=== PATIENT | female | born 1945 | race Caucasian/White ===

== ENCOUNTER → 2017-07-13 | Outpatient (CLI) | payer MEDICARE, BC ==
[~2017-07-13] MED LIST: AMIT10TA PO; ASPI81TA50 PO; BLAC160C PO; CALC-31 PO; FERR-26 PO; GABA-585 PO; GLUC1CAP48 PO; LEVO25TA4 PO; MELO15TA23 PO; MULT1TAB52 PO; NATURAL ESTROGEN PO; OMEG1CAP38 PO; POLY17PO29 PO
[2017-07-13 11:00] LABS: BASO % 1 % (0-3); EOS % 2 % (0-3); HEMATOCRIT 43.6 % (36.0-47.0); HEMOGLOBIN 14.8 g/dL (12.0-15.5); LYMPH # 1.4 x10^3/uL (1.0-4.8); LYMPH % 29 % (24-48); MEAN CORPUSCULAR HEMOGLOBIN 32 pg (25-35); MEAN CORPUSCULAR HGB CONC 34 g/dL (31-37); MEAN CORPUSCULAR VOLUME 93 fL (79-100); MONO % 7 % (0-9); NEUT % 61 % (31-73); PLATELET COUNT 216 x10^3/uL (140-400); RED BLOOD COUNT 4.68 x10^6/uL (3.50-5.40); RED CELL DISTRIBUTION WIDTH 13.9 % (11.5-14.5); WHITE BLOOD COUNT 4.9 x10^3/uL (4.0-11.0)
[2017-07-13 12:14] LABS: INR 1.1 (0.8-1.1); PROTHROMBIN TIME PATIENT 13.5 SEC (11.7-14.0)
[2017-07-13 12:42] LABS: BILIRUBIN,URINE NEGATIVE (NEG); GLUCOSE,URINE NEGATIVE (NEG); NITRITE,URINE NEGATIVE (NEG); PROTEIN,URINE NEGATIVE (NEG-TRACE); UROBILINOGEN,URINE 0.2 mg/dL (0.2 mg/dL)
[2017-07-13 12:43] LABS: BACTERIA,URINE 0 /HPF (0-FEW); RBC,URINE 0 /HPF (0-2); WBC,URINE 0 /HPF (0-4)
--- NOTE | 2017-07-13 16:58 | RAD ---
PROCEDURE: CHEST PA LATERAL CLINICAL INDICATION: PRE-OP CHEST, KNEE REPLACEMENT COMPARISON: Previous study from 07/01/2004 FINDINGS: No pneumothorax identified. Cardiac and mediastinal contours unremarkable. No pulmonary consolidation or acute airspace disease. No acute osseous abnormalities identified. IMPRESSION: No pulmonary consolidation or acute airspace disease.
== END | disposition home or self-care (01) ==
LOC: SURGPAT 09:17
PROVIDERS: ATTEND Orthopaedic Surgery
DX: Z01.818 Encounter for other preprocedural examination (principal); M17.12 Unilateral primary osteoarthritis, left knee; Z96.652 Presence of left artificial knee joint; R07.9 Chest pain, unspecified
CPT/HCPCS: 36415; 71020; 81001; 82040; 82306; 85025; 85610; 85651; 85730; 87641

== ENCOUNTER → 2017-07-13 | Outpatient (CLI) | payer MEDICARE, BC ==
[2017-07-13 11:36] LABS: CALCIUM 9.1 mg/dL (8.5-10.1); CREATININE 0.8 mg/dL (0.6-1.0); GFR 70.7; POTASSIUM 4.1 mmol/L (3.5-5.1); TOTAL BILIRUBIN 0.5 mg/dL (0.2-1.0); TOTAL PROTEIN 7.9 g/dL (6.4-8.2)
[2017-07-13 11:37] LABS: ALBUMIN 4.2 g/dL (3.4-5.0); ALBUMIN/GLOBULIN RATIO 1.1 (1.0-1.7)
[2017-07-13 11:42] LABS: CHOLESTEROL/HDL RATIO 3.8
[2017-07-13 11:45] LABS: FREE T4 0.79 ng/dL (0.76-1.46)
== END | disposition home or self-care (01) ==
LOC: LAB 09:08
PROVIDERS: ATTEND Family Medicine
DX: Z00.01 Encounter for general adult medical examination with abnormal findings (principal); E03.9 Hypothyroidism, unspecified
CPT/HCPCS: 36415; 80053; 80061; 84439; 84443

== ENCOUNTER 2017-08-04 05:55 | Inpatient (IN) | payer MEDICARE, BC ==
[2017-08-04] MEDS ORDERED: MELOXICAM 7.5 MG TABLET PO (06:00)
[2017-08-04] MEDS ORDERED: ROCURONIUM 50 MG/5 ML VIAL. (06:37)
[2017-08-04] MEDS ORDERED: LIDOCAINE 2% PF Vial for OR 5 ML VIAL. (06:37)
[2017-08-04] MEDS: IV RINGERS,LACTATED 1000ML 1,000 ML IV (06:37)
[2017-08-04] MEDS ORDERED: ONDANSETRON PF 4 MG/2 ML VIAL. (06:37)
[2017-08-04] MEDS ORDERED: PROPOFOL 20 ML IV (06:37)
[2017-08-04] MEDS: HYDROcodone/APAP 7.5/325MG 1 TAB TABLET PO ×3 (06:38→21:31)
[2017-08-04] MEDS ORDERED: fentaNYL PF VIAL 100 MCG/2 ML VIAL IV ×2 (07:00→10:00)
[2017-08-04] MEDS ORDERED: ONDANSETRON PF 4 MG/2 ML VIAL. IV (07:00)
[2017-08-04] MEDS ORDERED: LIDOCAINE 1% PF 2 ML VIAL. ID (07:00)
[2017-08-04] MEDS ORDERED: MIDAZOLAM HCL/PF 2 MG/2 ML VIAL. (07:03)
[2017-08-04] MEDS ORDERED: fentaNYL PF VIAL 100 MCG/2 ML VIAL ×2 (07:03→07:52)
[2017-08-04] MEDS ORDERED: FAMOTIDINE 20 MG/2 ML VIAL (07:03)
[2017-08-04] MEDS ORDERED: DEXAMETHASONE SOD PHOS 20 MG/5 ML VIAL. (07:47)
[2017-08-04] MEDS: TRANEXAMIC ACID 1,000 MG in IV NS 50ML -- 1ST BAG INJ (07:59)
[2017-08-04] MEDS: TOBRAMYCIN POWDER 1.2 GM VIAL. (08:24)
[2017-08-04] MEDS: VANCOMYCIN 1 GM VIAL. (08:24)
[2017-08-04] MEDS: TRANEXAMIC ACID 1,000 MG in IV NS 50ML -- 2ND BAG INJ (09:02)
[2017-08-04] MEDS ORDERED: NEOSTIGMINE METHYLSULFATE 5 MG/5 ML SYRINGE. (09:08)
[2017-08-04] MEDS ORDERED: GLYCOPYRROLATE 1 MG/5 ML VIAL. (09:08)
[2017-08-04] MEDS ORDERED: SEVOFLURANE 61 TO 120 MINUTES. IH (09:17)
[2017-08-04] MEDS ORDERED: MORPHINE SULFATE 4 MG/ML DISP.SYRIN. IV ×2 (10:00)
[2017-08-04] MEDS ORDERED: diphenhydrAMINE 50 MG/ML VIAL IV (10:00)
[2017-08-04] MEDS ORDERED: PROCHLORPERAZINE 10 MG/2 ML VIAL. IV (10:00)
[2017-08-04] MEDS ORDERED: METOCLOPRAMIDE HCL 10 MG/2 ML VIAL. IV (10:00)
[2017-08-04] MEDS ORDERED: DEXTROSE 50% 25 GM / 50ML DISP.SYRIN. IV (10:00)
[2017-08-04] MEDS ORDERED: 0.9 % SODIUM CHLORIDE 10 ML DISP.SYRIN. IV (10:00)
[2017-08-04] MEDS ORDERED: CALCIUM CARBONATE 500 MG TAB.CHEW PO (10:00)
[2017-08-04] MEDS ORDERED: traMADol 50 MG TABLET PO ×2 (10:00)
[2017-08-04] MEDS ORDERED: MORPHINE SULFATE 10 MG/ML VIAL. IV (10:00)
[2017-08-04] MEDS ORDERED: PROCHLORPERAZINE 5 MG TABLET. PO (10:00)
[2017-08-04] MEDS ORDERED: MORPHINE SULFATE 2 MG/ML DISP.SYRIN. IV (10:00)
[2017-08-04] MEDS ORDERED: ACETAMINOPHEN 325 MG TABLET. PO (10:00)
[2017-08-04] MEDS ORDERED: ZOLPIDEM 5 MG TABLET. PO (10:00)
[2017-08-04] MEDS: fentaNYL PF VIAL 100 MCG/2 ML VIAL IV ×3 (10:07→14:55)
[2017-08-04] MEDS: PROCHLORPERAZINE 10 MG/2 ML VIAL. IV (10:07)
[2017-08-04] MEDS ORDERED: ceFAZolin SODIUM 1 GM in IV DEXTROSE 5% 50 ML IV (10:15)
[2017-08-04] MEDS: MORPHINE SULFATE 2 MG/ML DISP.SYRIN. IV ×2 (10:37→10:59)
[2017-08-04] MEDS: HYDROmorphone 2 MG/ML VIAL IV ×2 (10:39→10:49)
[2017-08-04] MEDS: GABAPENTIN 100 MG CAPSULE. PO ×3 (14:55→21:19)
[2017-08-04] MEDS: SENNOSIDES/DOCUSATE 8.6/50MG TABLET. PO (14:55)
[2017-08-04] MEDS: ceFAZolin SODIUM IV Push 1 GM VIAL. IVP ×2 (14:55→21:30)
[2017-08-04] MEDS: IV DEXTROSE 5 %-0.45 % NACL 1,000 ML IV ×2 (15:05→19:55)
[2017-08-04] MEDS: POLYETHYLENE GLYCOL 3350 17 GM PACKET. PO (16:30)
[2017-08-04] MEDS: KETOROLAC 30 MG, BUPIVACAINE MPF 0.25% 20 ML, EPINEPHrine 0.5 MG in TOTAL VOLUME SYRING... INT ART (17:30)
[2017-08-04] MEDS: CALCIUM CARB/VIT D3 500/200 TABLET. PO (17:31)
[2017-08-04] MEDS: FERROUS SULFATE 325 MG TABLET. PO (17:31)
[2017-08-04] MEDS: HYDROcodone/APAP 10/325 1 TAB TABLET PO (21:19)
[2017-08-04] MEDS: AMITRIPTYLINE HCL 10 MG TABLET. PO (21:19)
[2017-08-04] MEDS: CELECOXIB 200 MG CAPSULE. PO (21:19)
[2017-08-04] MEDS: ASPIRIN ENTERIC COATED 325 MG TABLET.DR. PO (21:19)
[2017-08-05] MEDS: HYDROcodone/APAP 10/325 1 TAB TABLET PO ×4 (04:56→18:21)
[2017-08-05] MEDS: ceFAZolin SODIUM IV Push 1 GM VIAL. IVP (04:58)
[2017-08-05] MEDS: KETOROLAC 30 MG, BUPIVACAINE MPF 0.25% 20 ML, EPINEPHrine 0.5 MG in TOTAL VOLUME SYRING... INT ART (05:20)
[2017-08-05] MEDS ORDERED: MAGNESIUM HYDROXIDE 2,400 MG/30 ML ORAL.SUSP. PO (06:00)
[2017-08-05] MEDS: LEVOTHYROXINE 25 MCG TABLET. PO (06:19)
[2017-08-05] MEDS: GABAPENTIN 100 MG CAPSULE. PO ×4 (08:13→21:00)
[2017-08-05] MEDS: ASPIRIN ENTERIC COATED 325 MG TABLET.DR. PO ×2 (08:13→21:40)
[2017-08-05] MEDS: POLYETHYLENE GLYCOL 3350 17 GM PACKET. PO (08:13)
[2017-08-05] MEDS: CELECOXIB 200 MG CAPSULE. PO ×2 (08:13→21:40)
[2017-08-05] MEDS: CALCIUM CARB/VIT D3 500/200 TABLET. PO ×2 (08:13→17:54)
[2017-08-05] MEDS: MULTIVITAMIN with MINERAL TABLET. PO (08:13)
[2017-08-05] MEDS: FERROUS SULFATE 325 MG TABLET. PO ×2 (08:13→17:54)
[2017-08-05] MEDS: oxyCODONE/APAP 7.5/325 1 TAB TABLET PO (14:49)
[2017-08-05] MEDS ORDERED: BISACODYL 10 MG SUPP.RECT. PR (16:00)
[2017-08-05] MEDS: HYDROcodone/APAP 7.5/325MG 1 TAB TABLET PO (21:41)
[2017-08-05] MEDS: AMITRIPTYLINE HCL 10 MG TABLET. PO (21:41)
[2017-08-06] MEDS: HYDROcodone/APAP 7.5/325MG 1 TAB TABLET PO ×3 (01:25→08:26)
[2017-08-06 04:44] LABS: HEMATOCRIT 32.3 % (36.0-47.0); HEMOGLOBIN 10.9 g/dL (12.0-15.5); MEAN CORPUSCULAR HGB CONC 34 g/dL (31-37)
[2017-08-06] MEDS: LEVOTHYROXINE 25 MCG TABLET. PO (06:42)
[2017-08-06] MEDS: CALCIUM CARB/VIT D3 500/200 TABLET. PO ×2 (08:26→17:45)
[2017-08-06] MEDS: GABAPENTIN 100 MG CAPSULE. PO ×4 (08:26→22:06)
[2017-08-06] MEDS: FERROUS SULFATE 325 MG TABLET. PO ×2 (08:26→17:45)
[2017-08-06] MEDS: CELECOXIB 200 MG CAPSULE. PO ×2 (08:26→22:06)
[2017-08-06] MEDS: MULTIVITAMIN with MINERAL TABLET. PO (08:26)
[2017-08-06] MEDS: ASPIRIN ENTERIC COATED 325 MG TABLET.DR. PO ×2 (08:26→22:06)
[2017-08-06] MEDS: POLYETHYLENE GLYCOL 3350 17 GM PACKET. PO (09:00)
[2017-08-06] MEDS: HYDROcodone/APAP 10/325 1 TAB TABLET PO ×2 (12:18→22:06)
[2017-08-06] MEDS: oxyCODONE/APAP 5/325 1 TAB TABLET PO (14:34)
[2017-08-06] MEDS: oxyCODONE/APAP 7.5/325 1 TAB TABLET PO (17:45)
[2017-08-06] MEDS: AMITRIPTYLINE HCL 10 MG TABLET. PO (22:06)
[2017-08-07] MEDS: HYDROcodone/APAP 10/325 1 TAB TABLET PO (02:22)
[2017-08-07] MEDS: LEVOTHYROXINE 25 MCG TABLET. PO (04:44)
[2017-08-07 05:51] LABS: HEMATOCRIT 33.2 % (36.0-47.0); HEMOGLOBIN 11.1 g/dL (12.0-15.5); MEAN CORPUSCULAR HGB CONC 33 g/dL (31-37)
[2017-08-07] MEDS: ASPIRIN ENTERIC COATED 325 MG TABLET.DR. PO (08:04)
[2017-08-07] MEDS: CELECOXIB 200 MG CAPSULE. PO (08:04)
[2017-08-07] MEDS: GABAPENTIN 100 MG CAPSULE. PO ×2 (08:04→12:38)
[2017-08-07] MEDS: FERROUS SULFATE 325 MG TABLET. PO (08:04)
[2017-08-07] MEDS: MULTIVITAMIN with MINERAL TABLET. PO (08:04)
[2017-08-07] MEDS: CALCIUM CARB/VIT D3 500/200 TABLET. PO (08:04)
[2017-08-07] MEDS: POLYETHYLENE GLYCOL 3350 17 GM PACKET. PO (08:06)
[2017-08-07] MEDS: oxyCODONE/APAP 7.5/325 1 TAB TABLET PO ×3 (09:15→15:18)
== END 2017-08-07 15:45 | disposition home or self-care (01) | DRG 470 ==
LOC: OPSVCIP 05:55 → 4 SOUTHEST 11:27
PROC: 0SRD0J9 Replacement of Left Knee Joint with Synthetic Substitute, Cemented, Open Approach (ICD-10-PCS; principal; 2017-08-04 07:10)
DX: M17.12 Unilateral primary osteoarthritis, left knee (principal); M79.7 Fibromyalgia; Z90.710 Acquired absence of both cervix and uterus; Z88.1 Allergy status to other antibiotic agents; Z88.8 Allergy status to other drugs, medicaments and biological substances
CPT/HCPCS: 36415; 73560; 85014; 85018; 86850; 86900; 86901; 97110-GO; 97116-GP; 97150-GP; 97162-GP; 97165-GO; 97530-GO; 97530-GP; 97535-GO; C1713; J0171; J0690; J0780; J1100; J1170; J1885; J2250; J2270; J2405; J2704; J2710; J2795; J3010; J3260; J3370; J3490; J7030; J7120; S0028

== ENCOUNTER 2018-06-24 13:21 | Emergency (ER) | payer MEDICARE, BC ==
[~2018-06-24] VITALS: Ht 160 cm; Wt 65.3 kg
[~2018-06-24 13:21] MED LIST changes: +ASPI325T11 PO; -FERR-26 PO; +FERR325T14 PO; +OXYC1TAB15 PO
--- NOTE | 2018-06-24 14:16 | PHYS DOC ---
Past Medical History Past Medical History: Fibromyalgia, Hypothyroid, Other Additional Past Medical Histor: VERTIGO Past Surgical History: Hysterectomy, Knee Replacement, Other Additional Past Surgical Histo: BLADDER SUSPENSION,R BREAST CYST,BLADDER PACEMAKER,CYSTOSCOPY, D&C Alcohol Use: None Drug Use: None Adult General Chief Complaint Chief Complaint: Palpitations HPI HPI Patient is a 73 year old f p/w two weeks of intermittent palpitations. described as episodes of quick heartbeats, more frequent the last couple of days. lightheadedness "fullness" of head no vertigo. occasionally feels off balance. 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 episodes of this in the past but never this freqeunt or persistent. no recent med changes. no new otc agents. occasional green tea. bp 160's. hr 80 Review of Systems Review of Systems Constitutional: Denies fever or chills [] Eyes: Denies change in visual acuity, redness, or eye pain [] HENT: Denies nasal congestion or sore throat [] Respiratory: Denies cough or shortness of breath [] Cardiovascular: No additional information not addressed in HPI [] GI: Denies abdominal pain, nausea, vomiting, bloody stools or diarrhea [] : Denies dysuria or hematuria [] Musculoskeletal: Denies back pain or joint pain [] Integument: Denies rash or skin lesions [] Neurologic: Denies headache, focal weakness or sensory changes [] Endocrine: Denies polyuria or polydipsia [] All other systems were reviewed and found to be within normal limits, except as documented in this note. Allergies Allergies Allergies Coded Allergies Type Severity Reaction Last Updated Verified clarithromycin Allergy Intermediate Nausea 08/04/17 Yes diflunisal Allergy Intermediate Nausea 08/04/17 Yes indomethacin Allergy Intermediate Nausea 08/04/17 Yes piroxicam Allergy Intermediate Hives 08/04/17 Yes Physical Exam Physical Exam Constitutional: Well developed, well nourished, no acute distress, non-toxic appearance. [] HENT: Normocephalic, atraumatic, bilateral external ears normal, oropharynx moist, no oral exudates, nose normal. [] Eyes: PERRLA, EOMI, conjunctiva normal, no discharge. [] Neck: Normal range of motion, no tenderness, supple, no stridor. [] Cardiovascular:Heart rate regular rhythm, 1/6 diastolic murmur possibly Lungs & Thorax: Bilateral breath sounds clear to auscultation [] Abdomen: Bowel sounds normal, soft, no tenderness, no masses, no pulsatile masses. [] Skin: Warm, dry, no erythema, no rash. [] Back: No tenderness, no CVA tenderness. [] Extremities: No tenderness, no cyanosis, no clubbing, ROM intact, no edema. [] Neurologic: Alert and oriented X 3, normal motor function, normal sensory function, no focal deficits noted. [] cn's intact Psychologic: Affect normal, judgement normal, mood normal. [] Current Patient Data Vital Signs Vital Signs Date Time Temp Pulse Resp B/P (MAP) Pulse Ox O2 Delivery O2 Flow Rate FiO2 06/24/18 15:24 78 16 147/74 (98) 94 Room Air 06/24/18 13:50 97.6 97.6 Lab Values Laboratory Tests Test 06/24/18 14:03 White Blood Count 9.0 x10^3/uL (4.0-11.0) Red Blood Count 4.77 x10^6/uL (3.50-5.40) Hemoglobin 15.3 g/dL (12.0-15.5) Hematocrit 44.8 % (36.0-47.0) Mean Corpuscular Volume 94 fL (79-100) Mean Corpuscular Hemoglobin 32 pg (25-35) Mean Corpuscular Hemoglobin Concent 34 g/dL (31-37) Red Cell Distribution Width 13.0 % (11.5-14.5) Platelet Count 239 x10^3/uL (140-400) Neutrophils (%) (Auto) 82 % (31-73) H Lymphocytes (%) (Auto) 14 % (24-48) L Monocytes (%) (Auto) 4 % (0-9) Eosinophils (%) (Auto) 0 % (0-3) Basophils (%) (Auto) 1 % (0-3) Neutrophils # (Auto) 7.4 x10^3uL (1.8-7.7) Lymphocytes # (Auto) 1.2 x10^3/uL (1.0-4.8) Monocytes # (Auto) 0.3 x10^3/uL (0.0-1.1) Eosinophils # (Auto) 0.0 x10^3/uL (0.0-0.7) Basophils # (Auto) 0.0 x10^3/uL (0.0-0.2) Sodium Level 142 mmol/L (136-145) Potassium Level 4.3 mmol/L (3.5-5.1) Chloride Level 103 mmol/L (98-107) Carbon Dioxide Level 31 mmol/L (21-32) Anion Gap 8 (6-14) Blood Urea Nitrogen 19 mg/dL (7-20) Creatinine 0.9 mg/dL (0.6-1.0) Estimated GFR (Cockcroft-Gault) 61.5 BUN/Creatinine Ratio 21 (6-20) H Glucose Level 113 mg/dL (70-99) H Calcium Level 10.2 mg/dL (8.5-10.1) H Magnesium Level 2.0 mg/dL (1.8-2.4) Total Bilirubin 0.2 mg/dL (0.2-1.0) Aspartate Amino Transferase (AST) 21 U/L (15-37) Alanine Aminotransferase (ALT) 27 U/L (14-59) Alkaline Phosphatase 71 U/L (46-116) Troponin I Quantitative < 0.017 ng/mL (0.000-0.055) Total Protein 7.8 g/dL (6.4-8.2) Albumin 4.2 g/dL (3.4-5.0) Albumin/Globulin Ratio 1.2 (1.0-1.7) Thyroid Stimulating Hormone (TSH) 2.302 uIU/mL (0.358-3.74) Laboratory Tests 06/24/18 14:03 Laboratory Tests 06/24/18 14:03 EKG EKG [] Interpretation Time: nsr rate 81 no acute ischemic chagnes noted. intervals normal Radiology/Procedures Radiology/Procedures [] Impressions: cxr clera labs good Course & Med Decision Making Course & Med Decision Making Pertinent Labs and Imaging studies reviewed. (See chart for details) [] 73 yo f no pertinent pmh p/w intermittent palpitations consider paroxysmal afib v other get trop to r/o acs final plan: labs good trop neg no chest pain advised pmd f/u for holter and repeat bp. Luly Disclaimer Dragon Disclaimer This electronic medical record was generated, in whole or in part, using a voice recognition dictation system. Departure Departure Impression: Primary Impression: Palpitations Disposition: HOME, SELF-CARE Condition: STABLE Referrals: BEBETO CAMARGO (PCP) SALINAS MCKAY MD Jun 24, 2018 14:16
[2018-06-24 14:30] LABS: BASO % 1 % (0-3); EOS % 0 % (0-3); HEMATOCRIT 44.8 % (36.0-47.0); HEMOGLOBIN 15.3 g/dL (12.0-15.5); LYMPH # 1.2 x10^3/uL (1.0-4.8); LYMPH % 14 % (24-48); MEAN CORPUSCULAR HEMOGLOBIN 32 pg (25-35); MEAN CORPUSCULAR HGB CONC 34 g/dL (31-37); MEAN CORPUSCULAR VOLUME 94 fL (79-100); MONO # 0.3 x10^3/uL (0.0-1.1); MONO % 4 % (0-9); NEUT # 7.4 x10^3uL (1.8-7.7); NEUT % 82 % (31-73); PLATELET COUNT 239 x10^3/uL (140-400); RED BLOOD COUNT 4.77 x10^6/uL (3.50-5.40)
--- NOTE | 2018-06-24 14:34 | RAD ---
Exam: AP portable chest History: Weakness, palpitations. Comparison: July 13, 2017. Findings: The heart and mediastinal structures are within normal limits for size. Lungs are without infiltrate. No pleural effusion or pneumothorax is identified. Impression: 1. No acute cardiopulmonary process. Electronically signed by: Deven Foster MD (06/24/2018 2:30 PM) [place] [id number]
[2018-06-24 14:49] LABS: CALCIUM 10.2 mg/dL (8.5-10.1); CREATININE 0.9 mg/dL (0.6-1.0); GFR 61.5; POTASSIUM 4.3 mmol/L (3.5-5.1)
[2018-06-24 15:01] LABS: ALBUMIN 4.2 g/dL (3.4-5.0); ALBUMIN/GLOBULIN RATIO 1.2 (1.0-1.7); TOTAL BILIRUBIN 0.2 mg/dL (0.2-1.0); TOTAL PROTEIN 7.8 g/dL (6.4-8.2)
--- NOTE | 2018-06-24 15:03 | EKG ---
[facility] [address] [place] [id number] Test Date: 2018-06-24 Test Time: 13:55:27 Pat Name: ARDEN MENCHACA Department: Room: Gender: F Solar Energy Technician: : 1945 Requested By: SALINAS MCKAY Order Number: [id number] Reading MD: Jaya Moore MD Measurements Intervals [place] Rate: 81 P: 49 [place]: 178 QRS: -28 QRSD: 90 T: 53 QT: 366 QTc: 426 Interpretive Statements SINUS RHYTHM LEFT ATRIAL ABNORMALITY LEFTWARD AXIS CONSIDER LEFT VENTRICULAR HYPERTROPHY NON-SPECIFIC ST/T CHANGES Electronically Signed On 06-28-2018 8:35:47 ANIMAL ECOLOGIST by Jaya Moore MD
[2018-06-24 15:24] VITALS: BP 147/74
== END 2018-06-24 15:37 | disposition home or self-care (01) ==
LOC: ER 13:21
DX: R00.2 Palpitations (principal); E03.9 Hypothyroidism, unspecified; Z88.1 Allergy status to other antibiotic agents; Z88.8 Allergy status to other drugs, medicaments and biological substances
CPT/HCPCS: 36415; 71045; 80053; 83735; 84443; 84484; 85025; 93005; 99284-25